=== PATIENT | female | born 1960 | race Caucasian/White ===

== ENCOUNTER 2022-07-10 19:31 | Emergency (ER) | payer BC ==
[2022-07-10] MEDS ORDERED: Sodium Chloride 0.9% 10 ML Syringe FLUSH PRN (19:42)
[2022-07-10] MEDS ORDERED: levETIRAcetam in NaCl (iso-os) 1,500 MG in Premix Bag 1 BAG IV ONE ×2 (19:50)
[2022-07-10] MEDS ORDERED: Morphine 2 MG/ML SYRINGE IVPUSH ONE (19:52)
[2022-07-10 20:07] LABS: CHLORIDE,CL 105 mmol/L (98-107); SODIUM,NA 140 mmol/L (136-145)
[2022-07-10 20:10] LABS: ANION GAP 14.4 mmol/L (5-15); ESTIMATED GFR 83 mL/min (>=60)
[2022-07-10] MEDS ORDERED: Succinylcholine 200 MG/10 ML MDV ONE (20:27)
[2022-07-10] MEDS ORDERED: Rocuronium 50 MG/5 ML Vial ONE (20:27)
== END 2022-07-10 21:25 | disposition short-term general hospital (02) ==
LOC: VM.ED 19:31
DX: S06.300A Unspecified focal traumatic brain injury without loss of consciousness, initial encounter (principal); W10.9XXA Fall (on) (from) unspecified stairs and steps, initial encounter
CPT/HCPCS: 31500; 70450; 71045; 72125; 80053; 80307; 81001; 83605; 85025; 85610; 86850; 86900; 86901; 96374; 99284; 99285-25; J0330; J1953

== ENCOUNTER 2022-09-06 04:20 | Emergency (ER) | payer BC ==
[2022-09-06] MEDS ORDERED: Take Home: Phenazopyridine 95 MG Tab, 4 Tab Pack ONE (04:45)
[2022-09-06] MEDS ORDERED: Take Home: Nitrofurantoin Monohydrate/Macrocrystalline 100 MG, 6 Cap Pack PO ONE (04:49)
[2022-09-06] MEDS ORDERED: Take Home: Ondansetron 4 MG Tab.DIS, 5 Tab Pack PO ONE (05:21)
== END 2022-09-06 05:12 | disposition home or self-care (01) ==
LOC: VM.ED 04:20
DX: N39.0 Urinary tract infection, site not specified (principal)
CPT/HCPCS: 81001; 87086; 87088; 87186; 99283; 99284; A9270; Q0162

== ENCOUNTER 2022-09-09 12:45 | Emergency (ER) | payer BC ==
[2022-09-09] MEDS ORDERED: Sodium Chloride 0.9% 10 ML Syringe FLUSH PRN (13:14)
[2022-09-09] MEDS ORDERED: Lactated Ringers 1,000 ML IV ONE (13:15)
[2022-09-09] MEDS ORDERED: Ondansetron 4 MG/2 ML SDV IVPUSH ONE (13:15)
[2022-09-09 13:54] LABS: CHLORIDE,CL 102 mmol/L (98-107); SODIUM,NA 140 mmol/L (136-145)
[2022-09-09 13:55] LABS: ANION GAP 16.6 mmol/L (5-15); ESTIMATED GFR 83 mL/min (>=60)
[2022-09-09] MEDS ORDERED: cefTRIAXone 2 GM Vial IVPUSH ONE (15:05)
== END 2022-09-09 15:30 | disposition home or self-care (01) ==
LOC: VM.ED 12:45
DX: E86.0 Dehydration (principal); N39.0 Urinary tract infection, site not specified
CPT/HCPCS: 71045; 80053; 81001; 83605; 83735; 84100; 84443; 84484; 85025; 85610; 85730; 86140; 87086; 93005; 96361; 96374; 96375; 99284; J0696; J2405; J7120; 93010

== ENCOUNTER 2023-06-23 06:53 | Day surgery (SDC) | payer BC ==
[2023-06-23] MEDS ORDERED: Lactated Ringers 1,000 ML IV SCH (07:00)
[2023-06-23] MEDS ORDERED: Propofol 200 MG/20 ML SDV ONE ×2 (08:19→09:42)
[2023-06-23] MEDS ORDERED: fentaNYL 100 MCG/2 ML SDV ONE (08:19)
== END 2023-06-23 11:15 | disposition home or self-care (01) ==
LOC: VM.SDS 06:53
PROVIDERS: ATTEND Family Medicine
DX: D12.6 Benign neoplasm of colon, unspecified (principal); K64.8 Other hemorrhoids; Q43.8 Other specified congenital malformations of intestine; K62.89 Other specified diseases of anus and rectum; I10 Essential (primary) hypertension; E21.0 Primary hyperparathyroidism; Z87.891 Personal history of nicotine dependence; Z79.899 Other long term (current) drug therapy
CPT/HCPCS: 00811; 45380; J2704; J3010; J7120